=== PATIENT | female | born 1995 | race Caucasian/White ===

== ENCOUNTER 2018-03-24 07:00 | Inpatient (IN) | payer MEDICAID ==
[2018-03-24] VITALS (31 sets, daily range): BP systolic 118–162; BP diastolic 56–109
[~2018-03-24] VITALS: Ht 170.2 cm; Wt 130.2 kg
[~2018-03-24 07:00] MED LIST: BENZ56AE TP; CODE-54 PO; DBC1O30 TOP; DCS100C PO; FRS325T PO; IBP600T1 PO; PREN1TAB71 PO
[2018-03-24] MEDS ORDERED: OXYTOCIN/NORMAL SALINE 500 ML IV SCH ×2 (07:41→14:43)
[2018-03-24] MEDS ORDERED: D5 LR IV SOLUTION 1,000 ML IV SCH (07:41)
--- NOTE | 2018-03-24 07:45 | History & Physical ---
History and Physical Date Seen by Provider: Mar 24, 2018 Time Seen by Provider: 07:43 This patient is a 21-year-old A1 white female with an EDC of March 22, 2018. She presents now for induction of labor at 40+ weeks gestation. Her has been uncomplicated. Her GBS culture was negative. She denies drug membranes or bleeding. Allergies are none Medications are vitamins Medical social and surgical histories are present for record HEENT exam is normal Neck is supple no lymphadenopathy and no thyromegaly Abdomen gravid soft nontender nondistended Extremities show no clubbing cyanosis. There is no Homans sign. Pelvic exam is pending Assessment and plan term at 40+ weeks gestation admitted now for induction of labor. We anticipate a vaginal delivery. Allergies and Home Medications Allergies Coded Allergies: No Known Drug Allergies (Unverified , 06/05/14) Home Medications Acetaminophen/Codeine 1 Tab Tablet, 1-2 TAB PO Q4H PRN for MODERATE TO SEVERE PAIN Prescribed by: DAY LAIRD on 06/08/14 0907 Benzocaine/Menthol 56 Ml Aerosol, 56 ML TP UD PRN for PAIN Prescribed by: DAY LAIRD on 06/08/14 0907 Dibucaine 30 Gm Oint, 0 GM TOP UD PRN for PAIN Prescribed by: DAY LAIRD on 06/08/14 0907 Docusate Sodium 100 Mg Cap, 100 MG PO BID Prescribed by: DAY LAIRD on 06/08/14 0907 Ferrous Sulfate 325 Mg Tab, 325 MG PO DAILY Prescribed by: DAY LAIRD on 06/08/14 0907 Ibuprofen 600 Mg Tab, 600 MG PO Q6H Prescribed by: DAY LAIRD on 06/08/14 0907 Vit/Fe Fumarate/Fa 1 Each Tablet, 1 EACH PO DAILY, (Reported) Patient Home Medication List Home Medication List Reviewed: Yes DAVID BRYAN MD Mar 24, 2018 7:45 am
--- NOTE | 2018-03-24 07:46 | OB Bishop Score ---
Rodriguez Score 9 Cervix is right at 3 cm dilated more than 50 percent effaced about -1 station cervix is soft and midplane, with a vertex presentation DAVID BRYAN MD Mar 24, 2018 7:46 am
[2018-03-24 08:27] LABS: BASOPHILS # (AUTO) 0.1 10^3/uL (0.0-0.1); BASOPHILS % (AUTO) 1 % (0-10); EOSINOPHILS % (AUTO) 1 % (0-10); HEMATOCRIT 37 % (35-52); HEMOGLOBIN 12.7 G/DL (11.5-16.0); LYMPHOCYTES # (AUTO) 2.3 X 10^3 (1.0-4.0); LYMPHOCYTES % (AUTO) 26 % (12-44); MEAN CORPUSCULAR HEMOGLOBIN 32 PG (25-34); MEAN CORPUSCULAR HGB CONC 34 G/DL (32-36); MEAN CORPUSCULAR VOLUME 92 FL (80-99); MEAN PLATELET VOLUME 10.3 FL (7.4-10.4); MONOCYTES # (AUTO) 0.7 X 10^3 (0.0-1.0); MONOCYTES % (AUTO) 8 % (0-12); NEUTROPHILS # (AUTO) 5.7 X 10^3 (1.8-7.8); NEUTROPHILS % (AUTO) 64 % (42-75); PLATELET COUNT 203 10^3/uL (130-400); RED BLOOD COUNT 4.02 10^6/uL (4.35-5.85); RED CELL DISTRIBUTION WIDTH 13.6 % (10.0-14.5); WHITE BLOOD COUNT 8.9 10^3/uL (4.3-11.0)
[2018-03-24 08:58] LABS: ALANINE AMINOTRANSFERASE 20 U/L (0-55); ALBUMIN 3.3 GM/DL (3.2-4.5); ALKALINE PHOSPHATASE 199 U/L (40-136); BILIRUBIN,TOTAL 0.3 MG/DL (0.1-1.0); BUN/CREATININE RATIO 12; CALCIUM 8.6 MG/DL (8.5-10.1); CARBON DIOXIDE 18 MMOL/L (21-32); CHLORIDE 111 MMOL/L (98-107); GFR ESTIMATED > 60; GLUCOSE 72 MG/DL (70-105); POTASSIUM 3.8 MMOL/L (3.6-5.0); SODIUM 139 MMOL/L (135-145); URIC ACID 7.8 MG/DL (2.6-7.2)
[2018-03-24 09:13] LABS: URINE CREATININE FOR RATIO 33 MG/DL (30-125); URINE PROTEIN FOR RATIO ONLY < 6 MG/DL (6-12)
[2018-03-24] MEDS ORDERED: LIDOCAINE/EPI 2% 1:200,00 (XYLOCAINE) 10 ML VIAL ONE (12:32)
[2018-03-24] MEDS ORDERED: KETOROLAC 30 MG/ML VIAL ONE (14:29)
[2018-03-24] MEDS: KETOROLAC 30 MG/ML VIAL IV SCH ×2 (14:30→20:40)
[2018-03-24] MEDS ORDERED: TETANUS,DIPTH,PERTUSS P/F (BOOSTRIX) 0.5 ML VIAL IM ONE (14:45)
[2018-03-24] MEDS ORDERED: ONDANSETRON 4 MG/2 ML (SDV) Z0FRAN IVP PRN (14:45)
[2018-03-24] MEDS ORDERED: oxyCODONE/APAP 5/325MG (PERCOCET 5) TABLET PO PRN (14:45)
[2018-03-24] MEDS ORDERED: BENZOCAINE/MENTHOL (DERMOPLAST) 56 ML CAN TP PRN (14:45)
[2018-03-24] MEDS ORDERED: MEASLES,MUMPS,RUBELLA 1 EA INJ SC ONE (14:45)
[2018-03-24] MEDS: DOCUSATE SODIUM 100 MG (COLACE) CAP PO SCH (20:40)
--- NOTE | 2018-03-24 23:21 | OPERATIVE REPORT ---
DATE OF SERVICE: 03/24/2018 DELIVERY NOTE DATE OF DELIVERY: 03/24/2018. The patient delivered by term operative vaginal delivery a viable male infant with Apgars of 3, 6, and 7 at 1, 5 and 10 minutes. time of 1328. Cord blood gas with a pH of 7.01 and a base excess of -10. The patient was pushing adequately with the presenting part of the vertex in about 15 degrees of LOP. With the baby down to between the +2 and +3 station, Huerta forceps were applied to shorten the second stage of labor due to decreased heart rate to the 80s or 90s for in the range of 8 to 10 minutes at that point. Correct placement of the forceps was confirmed and then with traction along the pelvic axis with the next series of pushes. The presenting part delivered under the pubic bone and onto the perineum. The forceps were removed and the delivery completed with mom's expulsive effort. The head delivered easily over the perineum and then a mild shoulder dystocia encountered. The dystocia was anticipated and recognized promptly. The head was delivered at 1327. Dick was employed as well as suprapubic pressure on the left lower quadrant of mom pushing to her right and with some repositioning of the infant's posterior shoulder, which was deep in the pelvis, the anterior shoulder, which was the right, then delivered under the pubic bone and delivery was completed atraumatically with a time of 1328. There was little or no amniotic fluid noted on completion of the delivery. There had been little or no fluid noted on amniotomy or when a scalp electrode was placed. The patient had been evaluated two days prior for spontaneous rupture of membranes and that workup had been negative with a negative Nitrazine and a negative fern test. An ultrasound on that occasion showed an CHELSEA in excess of 100. It is suspected that the patient had ruptured sometime after that evaluation. With the infant delivered, the had Apgars reported as noted above. The infant was quite flaccid and cyanotic initially. The pulse in the cord was palpable and initially was in the range of 90. Within less than a minute, it was up to 180 and in another minute, it was around 160. The infant pinked up and had some respiratory effort, although it was not vigorous. The had some muscle tone, but had yet to demonstrate reflexes. When the umbilical cord was pulseless, it was doubly clamped, the father cut the cord and the baby was passed to the warmer for the care of the pediatric nurse in attendance for resuscitation. Cord bloods were obtained. The placenta delivered fairly promptly spontaneously Otto. It was normal with a 3-vessel cord. It is noted that there were two true knots in the umbilical cord. The cervix, vagina, rectum and perineum were examined and were intact except for a first-degree posterior vaginal floor laceration and a first-degree circumferential laceration on the inner aspect of the right labia majora. These were both repaired with a single suture of 3-0 Vicryl Rapide in the usual manner and under local analgesia using 1% lidocaine with epinephrine. A total of 10 mL infiltrated into the perineum and the right labia majora. The uterus contracted nicely. Estimated blood loss was in the range of 250 mL. Sponge and needle counts were correct on completion of delivery and repair. The mom remained in the LDR for recovery. The baby was taken to the full term nursery for evaluation by Dr. Strauss, the chick grader, on-call. Job ID: [id number] DocumentID: [id number] Dictated Date: 03/24/2018 14:16:43 Vault Keeper Date: 03/24/2018 23:21:18 Dictated By: DAVID BRYAN MD MTDD
[2018-03-25] VITALS: BP 144/85
[2018-03-25] MEDS: KETOROLAC 30 MG/ML VIAL IV SCH (03:20)
[2018-03-25 04:00] VITALS: BP 138/89
[2018-03-25 08:40] VITALS: BP 123/47
[2018-03-25] MEDS ORDERED: IBUPROFEN 800 MG (MOTRIN) TAB PO ONE (09:14)
[2018-03-25] MEDS: DOCUSATE SODIUM 100 MG (COLACE) CAP PO SCH ×2 (09:25→20:33)
--- NOTE | 2018-03-25 09:43 | Progress Note-Standard ---
Standard Progress Note Progress Notes/Assess & Plan Date Seen by a Provider: Mar 25, 2018 Time Seen by a Provider: 09:41 Progress/Assessment & Plan This patient without complaint. She is ambulating, voiding, tolerating oral intake well, patient has good pain control. Patient denies chest pain, denies shortness breath, denies nausea vomiting, and denies headache. Vital Signs 03/25/18 04:00 Temp 98.1 Pulse 93 Resp 22 B/P (MAP) 138/89 (105) Pulse Ox 97 O2 Delivery Room Air Vital signs are stable. Patient is afebrile. Fundus is firm below the umbilicus and nontender. Extreme show no clubbing cyanosis. There is no Homans sign. This fairly notable edema but this appears to be normal for the state Assessment and plan day number 1 status post term operative vaginal delivery doing well. Baby is in the room with mother doing well also. Plan for routine convalescence care today and likely discharge home tomorrow DAVID BRYAN MD Mar 25, 2018 9:43 am
[2018-03-25] MEDS ORDERED: IBUP-1780 PO (09:45)
[2018-03-25] MEDS ORDERED: OXYC1TAB87 PO (09:45)
[2018-03-25] MEDS ORDERED: DOCU100C37 PO (09:45)
--- NOTE | 2018-03-25 09:46 | Discharge Instructions ---
Discharge Instructions Discharge Medications New, Converted or Re-Newed RX: RX on Chart Patient Instructions Patient Instructions: As directed Return to The Hospital For: As directed Activity & Diet Discharge Diet: No Restrictions Activity as Tolerated: No Orders-Post D/C & Referrals Follow Up Appt: Call to make follow up appt. for patient in 4 weeks. Activity Per routine post vaginal delivery instructions. Diet as tolerated Patient may shower or tub bathe as desired. DAVID BRYAN MD Mar 25, 2018 9:46 am
[2018-03-25 13:08] VITALS: BP 136/96
[2018-03-25] MEDS: IBUPROFEN 800 MG (MOTRIN) TAB PO SCH (19:05)
[2018-03-25 19:30] VITALS: BP 148/92
[2018-03-26] MEDS: IBUPROFEN 800 MG (MOTRIN) TAB PO SCH ×2 (01:17→07:26)
[2018-03-26 01:18] VITALS: BP 147/87
[2018-03-26 08:41] VITALS: BP 149/98
[2018-03-26] MEDS: DOCUSATE SODIUM 100 MG (COLACE) CAP PO SCH (08:44)
[2018-03-26] MEDS ORDERED: TETANUS,DIPTH,PERTUSS P/F (BOOSTRIX) 0.5 ML VIAL IM ONE (09:11)
== END 2018-03-26 09:55 | disposition home or self-care (01) | DRG 807 ==
LOC: LDRP 07:33
PROVIDERS: ADMIT Obstetrics & Gynecology; ATTEND Obstetrics & Gynecology
PROC: 10D07Z3 Extraction of Products of Conception, Low Forceps, Via Natural or Artificial Opening (ICD-10-PCS; principal; 2018-03-24)
PROC: 0HQ9XZZ Repair Perineum Skin, External Approach (ICD-10-PCS; 2018-03-24)
PROC: 3E033VJ Introduction of Other Hormone into Peripheral Vein, Percutaneous Approach (ICD-10-PCS; 2018-03-24)
DX: O48.0 Post-term pregnancy (principal); O70.0 First degree perineal laceration during delivery; O69.82X0 Labor and delivery complicated by other cord entanglement, without compression, not applicable or unspecified; O66.0 Obstructed labor due to shoulder dystocia; Z3A.40 40 weeks gestation of pregnancy; Z37.0 Single live birth
CPT/HCPCS: 36415; 80053; 82570; 84156; 84550; 85025; 90715

== ENCOUNTER 2019-05-19 05:35 | Outpatient (CLI) | payer MEDICAID ==
[~2019-05-19] VITALS: Ht 170.2 cm; Wt 105.9 kg
[~2019-05-19 05:35] MED LIST changes: +DOCU100C37 PO; +IBUP-1780 PO; +OXYC1TAB87 PO
[2019-05-19] MEDS ORDERED: NORG1TAB14 PO (14:36)
[2019-05-19] MEDS ORDERED: MULT-141 PO (14:36)
[2019-05-25] MEDS ORDERED: OXYC1TAB87 PO (13:59)
[2019-05-25] MEDS ORDERED: DOCU-143 PO (13:59)
[2019-05-25] MEDS ORDERED: IBUP-1780 PO (13:59)
== END 2019-05-19 14:37 | disposition home or self-care (01) ==
LOC: PREOP 05:35
PROVIDERS: ATTEND Obstetrics & Gynecology
DX: Z01.818 Encounter for other preprocedural examination (principal)

== ENCOUNTER 2021-03-01 07:00 | Inpatient (IN) | payer BC, MEDICAID ==
[~2021-03-01] VITALS: Ht 170.2 cm; Wt 128.5 kg
[2021-03-01] VITALS (43 sets, daily range): BP systolic 112–162; BP diastolic 55–96
[~2021-03-01 07:00] MED LIST changes: +DOCU-143 PO; +MULT-141 PO; +NORG1TAB14 PO
[2021-03-01] MEDS: D5 LR IV SOLUTION 1,000 ML IV SCH ×2 (08:06→11:45)
[2021-03-01 08:27] LABS: BASOPHILS % (AUTO) 0 % (0-10); EOSINOPHILS # (AUTO) 0.1 10^3/uL (0.0-0.3); EOSINOPHILS % (AUTO) 1 % (0-10); HEMATOCRIT 38 % (35-52); HEMOGLOBIN 12.9 g/dL (11.5-16.0); LYMPHOCYTES # (AUTO) 2.1 10^3/uL (1.0-4.0); LYMPHOCYTES % (AUTO) 24 % (12-44); MEAN CORPUSCULAR HEMOGLOBIN 32 pg (25-34); MEAN CORPUSCULAR HGB CONC 34 g/dL (32-36); MEAN CORPUSCULAR VOLUME 93 fL (80-99); MEAN PLATELET VOLUME 10.6 fL (9.0-12.2); MONOCYTES # (AUTO) 0.7 10^3/uL (0.0-1.0); MONOCYTES % (AUTO) 8 % (0-12); NEUTROPHILS # (AUTO) 5.8 10^3/uL (1.8-7.8); NEUTROPHILS % (AUTO) 67 % (42-75); PLATELET COUNT 195 10^3/uL (130-400); WHITE BLOOD COUNT 8.7 10^3/uL (4.3-11.0)
[2021-03-01] MEDS ORDERED: PREN-37 PO (08:53)
[2021-03-01] MEDS ORDERED: OXYTOCIN PRE-MIX DRIP 500 ML IV ONE (09:27)
[2021-03-01] MEDS ORDERED: OXYTOCIN PRE-MIX DRIP 500 ML IV SCH ×3 (10:30→21:30)
--- NOTE | 2021-03-01 10:59 | History & Physical ---
History and Physical Date Seen by Provider: Mar 01, 2021 Time Seen by Provider: 10:57 This patient is a 25-year-old 3 para 2 female who presents for induction of labor at 39+ weeks gestation. Her has been uncomplicated. She denies rupture membranes or bleeding. Her GBS culture was negative. Allergies are none Medications are vitamins Medical social and surgical history is are per the antepartum record HEENT exam is normal Neck is supple no lymphadenopathy no thyromegaly Abdomen is gravid soft nontender nondistended Extremities show no clubbing cyanosis. There is no Homans' sign. Pelvic exam is pending Assessment and plan 39+ weeks gestation admitted for elective induction of labor. We anticipate vaginal 39 weeks admitted for induction of labor Allergies and Home Medications Allergies Coded Allergies: No Known Drug Allergies (Unverified , 06/05/14) Patient Home Medication List Home Medication List Reviewed: Yes Vit/Iron Fumarate/FA ( Tablet) 1 Each Tablet, 1 EACH PO DAILY, (Reported) Entered as Reported by: NOLBERTO YOUNG on 03/01/21 0853 Last Action: New Order Discontinued Medications Docusate Sodium (Colace) 100 Mg Capsule, 100 MG PO BID Discontinued Reason: No Longer Taking Prescribed by: DAVID PACE on 05/25/19 1359 Last Action: Discontinued Ibuprofen (Ibuprofen) 800 Mg Tablet, 800 MG PO Q6H PRN for PAIN Discontinued Reason: No Longer Taking Prescribed by: DAVID PACE on 05/25/19 1359 Last Action: Discontinued Multivit with Calcium,Iron,Min (Women's Daily Formula) 1 Each Tablet, 1 EACH PO DAILY, (Reported) Discontinued Reason: No Longer Taking Entered as Reported by: HAI VILLAREAL on 05/19/19 1436 Last Action: Discontinued Norgestimate-Ethinyl Estradiol (Sprintec 28 Day Tablet) 1 Each Tablet, 1 EACH PO DAILY, (Reported) Discontinued Reason: No Longer Taking Entered as Reported by: HAI VILLAREAL on 05/19/19 1436 Last Action: Discontinued Oxycodone HCl/Acetaminophen (Percocet 5-325 mg Tablet) 1 Each Tablet, 1 TAB PO Q4H Discontinued Reason: No Longer Taking Prescribed by: DAVID PACE on 05/25/19 1359 Last Action: Discontinued DAVID BRYAN MD Mar 01, 2021 10:59
[2021-03-01] MEDS ORDERED: D5 LR IV SOLUTION 1,000 ML IV SCH (11:00)
[2021-03-01] MEDS ORDERED: IBUP-1780 PO (11:11)
--- NOTE | 2021-03-01 11:12 | Discharge Inst-Surgical ---
Discharge Inst-Surgical Depart Medication/Instructions New, Converted or Re-Newed RX: Transmitted to Pharmacy Consults/Follow Up Patient Instructions: as directed Orders & Referrals Follow Up Appt: Call to make follow up appt. for patient in 4 weeks. Activity Per routine post vaginal delivery instructions. Diet as tolerated Patient may shower or tub bathe as desired. Activity Activity as Tolerated: No Diet Discharge Diet: No Restrictions DAVID BRYAN MD Mar 01, 2021 11:12
[2021-03-01] MEDS ORDERED: FLU QUADRIvalent (3YOA+) 60 mcg/0.5 ml 2021-22(AFLURIA) IM ONE (11:30)
[2021-03-01] MEDS ORDERED: CATHETER FLUSH 10 ML SYR IV SCH ×2 (14:00→22:00)
[2021-03-01] MEDS ORDERED: LIDOCAINE 1% INJ 20 ML 20 ML VIAL ONE (17:03)
[2021-03-01] MEDS ORDERED: MEASLES,MUMPS,RUBELLA 1 EA INJ SQ ONE (21:30)
[2021-03-01] MEDS ORDERED: WITCH HAZEL(TUCKS) 40 EA JAR TOP PRN (21:30)
[2021-03-01] MEDS ORDERED: BENZOCAINE/MENTHOL (DERMOPLAST) 56 ML CAN TP PRN (21:30)
[2021-03-01] MEDS ORDERED: TETANUS,DIPTH,PERTUSS P/F (BOOSTRIX) 0.5 ML VIAL IM ONE (21:30)
[2021-03-01] MEDS: KETOROLAC 30 MG/ML VIAL IVP SCH (21:31)
[2021-03-02 00:23] VITALS: BP 118/63
--- NOTE | 2021-03-02 01:36 | OPERATIVE REPORT ---
DATE OF SERVICE: 03/01/2021 DELIVERY NOTE The patient delivered by term spontaneous vaginal delivery a viable male with Apgars of 9 and 9 at 1 and 5 minutes respectively. Weight 7 pounds and 7 ounces. Blood gases pending and a time of 181. Delivery was accomplished over an intact perineum under no analgesia. The was bulb suctioned on delivery of the head and again on completion of delivery. The umbilical cord was doubly clamped, father cut the cord, the baby was passed to mom's abdomen. Cord bloods were obtained. The placenta delivered spontaneously Otto. It was normal with a 3-vessel cord. The cervix, vagina, rectum, and perineum were examined and found intact. Sponge and needle counts were correct. Blood loss was around 100 mL. The patient tolerated the delivery well and remained in the LDR. The baby remained with the mom. Job ID: [id number] DocumentID: [id number] Dictated Date: 03/01/2021 18:22:32 Rn Radiation Date: 03/02/2021 01:36:20 Dictated By: DAVID BRYAN MD MTDD
[2021-03-02] MEDS: KETOROLAC 30 MG/ML VIAL IVP SCH (04:16)
[2021-03-02 04:22] VITALS: BP 104/50
[2021-03-02] MEDS ORDERED: IBUPROFEN 800 MG (MOTRIN) TAB PO ONE (08:29)
--- NOTE | 2021-03-02 08:47 | Progress Note ---
Standard Progress Note Progress Notes/Assess & Plan Date Seen by a Provider: Mar 02, 2021 Time Seen by a Provider: 08:45 Progress/Assessment & Plan This patient is without complaint. She is ambulating, voiding, tolerating oral intake well and has good pain control. Vital Signs 03/02/21 04:22 Temp 36.6 Pulse 86 Resp 18 B/P (MAP) 104/50 (68) Pulse Ox 97 O2 Delivery Room Air Vital signs are stable. Patient is afebrile. Fundus is firm below the umbilicus and nontender. Extremities show no clubbing cyanosis. There is no Homans' sign. Pelvic exam is deferred Assessment and plan Post day #1 status post term spontaneous vaginal livery doing well. Plan is for routine convalescent care with discharge home at patient's request as needed Final Diagnosis Term spontaneous vaginal delivery at 39 weeks gestation DAVID BRYAN MD Mar 02, 2021 08:46
[2021-03-02] MEDS: DOCUSATE SODIUM 100 MG (COLACE) CAP PO SCH ×2 (09:22→20:33)
[2021-03-02 10:00] VITALS: BP 126/62
[2021-03-02] MEDS: IBUPROFEN 800 MG (MOTRIN) TAB PO SCH ×2 (16:11→21:55)
[2021-03-02 17:56] VITALS: BP 120/60
[2021-03-02 21:30] VITALS: BP_SYST 110; BP_SYST 125; BP_DIAS 69; BP_DIAS 70
[2021-03-03] MEDS: IBUPROFEN 800 MG (MOTRIN) TAB PO SCH ×3 (03:51→17:30)
[2021-03-03 03:55] VITALS: BP 126/60
[2021-03-03 10:15] VITALS: BP 127/67
[2021-03-03] MEDS: DOCUSATE SODIUM 100 MG (COLACE) CAP PO SCH (10:15)
--- NOTE | 2021-03-03 12:31 | Progress Note ---
Standard Progress Note Progress Notes/Assess & Plan Date Seen by a Provider: Mar 03, 2021 Time Seen by a Provider: 12:29 Progress/Assessment & Plan This patient is without complaint. She is ambulating, voiding, tolerating oral intake well and has good pain control. Vital Signs 03/02/21 04:22 Temp 36.6 Pulse 86 Resp 18 B/P (MAP) 104/50 (68) Pulse Ox 97 O2 Delivery Room Air Vital signs are stable. Patient is afebrile. Fundus is firm below the umbilicus and nontender. Extremities show no clubbing cyanosis. There is no Homans' sign. Pelvic exam is deferred Assessment and plan Post day #1 status post term spontaneous vaginal livery doing well. Plan is for routine convalescent care with discharge home at patient's request as needed March 03, 2021 This patient is without complaint. She is ambulating, voiding, tolerating oral intake well and has good pain control. Patient is requesting discharge home. Vital Signs Date Time Temp Pulse Resp B/P (MAP) Pulse Ox O2 Delivery O2 Flow Rate FiO2 03/03/21 03:55 36.5 81 16 126/60 (82) 97 Room Air 03/02/21 21:30 36.5 87 16 125/69 (87) 97 Room Air 03/02/21 17:56 36.8 75 18 120/60 (80) 99 Room Air I & O 03/03/21 07:00 Intake Total 675 ml Balance 675 ml Vital signs are stable. Patient is afebrile. Fundus is firm below the umbilicus and nontender. Extremities show no clubbing cyanosis. There is no Homans' sign. Assessment and plan day #2 status post term spontaneous vaginal delivery doing well plan is for discharge home with follow-up in clinic Final Diagnosis 39-week spontaneous vaginal delivery DAVID BRYAN MD Mar 03, 2021 12:30
[2021-03-06] MEDS ORDERED: IBUPROFEN 800 MG (MOTRIN) TAB PO SCH (22:00)
== END 2021-03-03 17:30 | disposition home or self-care (01) | DRG 807 ==
LOC: LDRP 07:20
PROVIDERS: ADMIT Obstetrics & Gynecology; ATTEND Obstetrics & Gynecology
PROC: 10E0XZZ Delivery of Products of Conception, External Approach (ICD-10-PCS; principal; 2021-03-01)
PROC: 3E033VJ Introduction of Other Hormone into Peripheral Vein, Percutaneous Approach (ICD-10-PCS; 2021-03-01)
DX: O80 Encounter for full-term uncomplicated delivery (principal); Z37.0 Single live birth; Z3A.39 39 weeks gestation of pregnancy
CPT/HCPCS: 36415; 85025; 86850; 86900; 86901

== ENCOUNTER → 2022-04-14 | Outpatient (CLI) | payer BC, MEDICAID ==
[~2022-04-14] MED LIST changes: +PREN-37 PO
--- NOTE | 2022-04-14 17:09 | Diagnostic Imaging Report ---
INDICATION: anatomy survey TECHNIQUE: Multiple real-time grayscale images were obtained over the gravid uterus. COMPARISON: None FINDINGS: Cervix measures approximately 7 cm in length. Placenta is fundal and posterior position without previa. Maternal adnexa are not well visualized due to advanced gestational age. Single live intrauterine is in variable lie throughout the examination. The CHELSEA is normal at 10.8 cm. The following anatomy is visualized and normal: Spine, urinary bladder, stomach, kidneys, cerebellum, cisterna magna, umbilical cord insertion, profile, cerebral ventricles, four-chamber heart, left ventricular outflow tract, lips/nose and right ventricular outflow tract. Biometrical measurements are as follows: Biparietal 3.95 cm, age 18 weeks 1 days. Head circumference 15.45 cm, age 18 weeks 3 days. Abdominal circumference 13.19 cm, age 18 weeks 5 days. Femur length 2.72 cm, age 18 weeks 3 days. Sonographic estimate age: 18 weeks 3 days. Sonographic estimated date of delivery: 09/12/2022. Estimated Weight: 242 gm (+/- 36 gm). LMP percentile: 32%. heart rate: 135 beats per minute. number: 1 of 1. IMPRESSION: Single live intrauterine has normal anatomy survey. Dictated by: Dictated on workstation # [id number]
== END ==
LOC: RAD 15:00
PROVIDERS: ATTEND Obstetrics & Gynecology
DX: Z34.82 Encounter for supervision of other normal pregnancy, second trimester (principal)
CPT/HCPCS: 76805